=== PATIENT | female | born 1980 | race African-American/Black ===

== ENCOUNTER 2017-05-06 16:09 | Emergency (ER) | payer SELFPAY ==
[~2017-05-06] VITALS: Ht 160 cm; Wt 81.4 kg
[2017-05-06 16:33] VITALS: BP 126/82
[2017-05-06 17:38] LABS: ADD MIUA? NO; BILIRUBIN NEGATIVE; BLOOD NEGATIVE; COLOR YELLOW ((YELLOW)); GLUCOSE (STRIP) NEGATIVE; KETONES NEGATIVE; LEUKOCYTES NEGATIVE; NITRITE NEGATIVE; PROTEIN (STRIP) NEGATIVE; SPECIFIC GRAVITY 1.015 (1.000-1.030); UCUL ADDED? NO; UROBILINOGEN 0.2 MG/DL (0.2-1.0)
[2017-05-06 17:53] LABS: AMPHETAMINE NEGATIVE (500 ng/mL); BARBITURATES NEGATIVE (200 ng/mL); BENZODIAZEPINES NEGATIVE (150 ng/mL); COCAINE NEGATIVE (150 ng/mL); INTERNAL CONTROLS VALID? YES; METHADONE NEGATIVE (200 ng/mL); METHAMPHETAMINE NEGATIVE (500 ng/mL); OPIATES (MORPHINE) NEGATIVE (100 ng/mL); OXYCODONE NEGATIVE (100 ng/mL); PHENCYCLIDINE NEGATIVE (25 ng/mL); PROPOXYPHENE NEGATIVE (300 ng/mL); THC CANNABINOIDS NEGATIVE (50 ng/mL); TRICYCLIC ANTIDEPRESSANTS NEGATIVE (300 ng/mL)
[2017-05-06 17:55] LABS: EOSINOPHIL (%) 1.2 % (0-5); EOSINOPHIL COUNT 0.1 K/uL (0-0.3); HEMATOCRIT 33.6 % (36.0-46.0); IMMATURE GRANULOCYTE (%) 0.8 % (0.0-0.7); IMMATURE GRANULOCYTE COUNT 0.1 K/uL; INSTRUMENT ABS NEUTROPHIL CT 5.4 K/uL; LYMPHOCYTE COUNT 1.5 K/uL (1.0-2.8); MCH 24.5 PG (29.0-34.0); MCHC 32.1 G/DL (30.0-36.0); MCV 76.4 FL (83-99); MEAN PLAT.VOLUME 9.9 uM^3 (9.5-12.4); MONOCYTE (%) 6.2 % (3-12); MONOCYTE COUNT 0.5 K/uL (0-0.8); NEUTROPHIL (%) 72.2 % (45-76); NEUTROPHIL COUNT 5.4 K/uL (1.8-6.4); PLATELET COUNT 346 K/uL (156-360); RBC DIS.WIDTH-CV 14.1 % (11.8-14.6); RBC DIS.WIDTH-SD 39.2 % (39-53); WHITE BLOOD COUNT 7.4 K/uL (4.1-10.2)
[2017-05-06 18:11] LABS: ALKALINE PHOSPHATASE 57 IU/L (3-129); ANION GAP 8 MEQ/L (2-14); CHLORIDE 105 MEQ/L (99-109); GFR ESTIMATE (CALCULATED) > 59 mL/min/; GLUCOSE 103 mg/dL (70-99); POTASSIUM 3.4 MEQ/L (3.7-5.4); SAMPLE HEMOLYSIS CHECK 0; SAMPLE ICTERIC CHECK 0; SAMPLE LIPEMIA CHECK 0; SODIUM 135 MEQ/L (136-147); TOTAL BILIRUBIN 0.2 MG/DL (0.0-1.0); UREA NITROGEN (BUN) 8 mg/dL (9-23)
[2017-05-06 20:36] VITALS: BP 125/80
== END 2017-05-06 20:36 | disposition home or self-care (01) ==
LOC: LDRP-OP 16:09 → EME 16:09 → 2WEST 16:10 → LDRP-OP 16:10 → 2WEST 17:43 → EDSTATUS 18:09 → EME 20:36
PROVIDERS: Advanced Practice Midwife
DX: O98.513 Other viral diseases complicating pregnancy, third trimester (principal); B34.9 Viral infection, unspecified; O09.513 Supervision of elderly primigravida, third trimester; Z3A.28 28 weeks gestation of pregnancy; Z88.6 Allergy status to analgesic agent
CPT/HCPCS: 59025; 71020; 80053; 81003; 85025; 99281; 99283

== ENCOUNTER → 2017-05-16 | Outpatient (CLI) | payer SELFPAY | END | disposition home or self-care (01) | LOC: RAD 12:35 | DX: Z3A.29 29 weeks gestation of pregnancy (principal); D25.9 Leiomyoma of uterus, unspecified | CPT/HCPCS: 76805 ==

== ENCOUNTER 2017-07-13 18:58 | Inpatient (IN) | payer OTHER ==
[~2017-07-13] VITALS: Ht 160 cm; Wt 83.2 kg
[2017-07-13] VITALS (10 sets, daily range): BP systolic 123–176; BP diastolic 84–105
[2017-07-13] MEDS ORDERED: PRENATAL TABLE1 EAC3 PO (19:19)
[2017-07-13] MEDS ORDERED: IRON325 M1 PO (19:19)
[2017-07-13 22:00] LABS: EOSINOPHIL (%) 0.3 % (0-5); HEMATOCRIT 37.1 % (36.0-46.0); IMMATURE GRANULOCYTE (%) 0.4 % (0.0-0.7); LYMPHOCYTE COUNT 1.5 K/uL (1.0-2.8); MCH 25.5 PG (29.0-34.0); MCHC 33.4 G/DL (30.0-36.0); MCV 76.2 FL (83-99); MEAN PLAT.VOLUME 10.7 uM^3 (9.5-12.4); MONOCYTE (%) 6.8 % (3-12); MONOCYTE COUNT 0.5 K/uL (0-0.8); NEUTROPHIL (%) 70.5 % (45-76); PLATELET COUNT 284 K/uL (156-360); RBC DIS.WIDTH-CV 14.1 % (11.8-14.6); RBC DIS.WIDTH-SD 37.9 % (39-53); RED BLOOD COUNT 4.87 M/uL (3.80-5.20); WHITE BLOOD COUNT 7.1 K/uL (4.1-10.2)
[2017-07-13 22:11] LABS: ANION GAP 10 MEQ/L (2-14); CHLORIDE 102 MEQ/L (99-109); POTASSIUM 3.8 MEQ/L (3.7-5.4); SAMPLE HEMOLYSIS CHECK 0; SAMPLE ICTERIC CHECK 0; SAMPLE LIPEMIA CHECK 1; SODIUM 131 MEQ/L (136-147); TOTAL BILIRUBIN 0.4 MG/DL (0.0-1.0)
[2017-07-13 22:16] LABS: ALKALINE PHOSPHATASE 105 IU/L (3-129); GFR ESTIMATE (CALCULATED) > 59 mL/min/; GLUCOSE 78 mg/dL (70-99); LACTATE DEHYDROGENASE 197 IU/L (20-246); UREA NITROGEN (BUN) 11 mg/dL (9-23); URIC ACID 5.1 mg/dL (3.1-9.2)
[2017-07-13 22:27] LABS: UR CREATININE CONCENTRATION 124.3 MG/DL
[2017-07-14] VITALS (11 sets, daily range): BP systolic 109–151; BP diastolic 61–89
[2017-07-14 01:27] LABS: HEMATOCRIT 27.1 % (36.0-46.0); MCHC 32.1 G/DL (30.0-36.0); MCV 77.9 FL (83-99); MEAN PLAT.VOLUME 10.1 uM^3 (9.5-12.4); NRBC (%) 0.2 /100 WBC (0-0); PLATELET COUNT 296 K/uL (156-360); RBC DIS.WIDTH-CV 13.9 % (11.8-14.6); RBC DIS.WIDTH-SD 39.2 % (39-53); RED BLOOD COUNT 3.48 M/uL (3.80-5.20); WHITE BLOOD COUNT 24.3 K/uL (4.1-10.2)
[2017-07-14 03:53] LABS: HEMATOCRIT 22.3 % (36.0-46.0); MCH 25.4 PG (29.0-34.0); MCHC 32.7 G/DL (30.0-36.0); MCV 77.7 FL (83-99); MEAN PLAT.VOLUME 9.6 uM^3 (9.5-12.4); NRBC (%) 0.1 /100 WBC (0-0); PLATELET COUNT 245 K/uL (156-360); RBC DIS.WIDTH-SD 39.5 % (39-53); RED BLOOD COUNT 2.87 M/uL (3.80-5.20); WHITE BLOOD COUNT 22.6 K/uL (4.1-10.2)
[2017-07-14 04:00] LABS: INTER. NORMALIZED RATIO 1.1; PROTHROMBIN TIME 12.1 SEC (10.2-12.9)
[2017-07-14 04:30] LABS: FIBRINOGEN 199 mg/dL (150-450)
[2017-07-14 04:52] LABS: EOSINOPHIL (%) 0 % (0-5); HEMATOLOGY COMMENT 1 SMEAR COMPATIBLE; IMMATURE GRANULOCYTE (%) 1.4 % (0.0-0.7); IMMATURE GRANULOCYTE COUNT 0.3 K/uL; INSTRUMENT ABS NEUTROPHIL CT 19.2 K/uL; LYMPHOCYTE COUNT 1.6 K/uL (1.0-2.8); MONOCYTE (%) 6.3 % (3-12); MONOCYTE COUNT 1.4 K/uL (0-0.8); NEUTROPHIL (%) 85.2 % (45-76); NEUTROPHIL COUNT 19.2 K/uL (1.8-6.4); PLAT.SUFFICIENCY ADEQUATE
[2017-07-14 12:31] LABS: HEMATOCRIT 15.3 % (36.0-46.0); MCHC 32.7 G/DL (30.0-36.0); MCV 76.5 FL (83-99); RBC DIS.WIDTH-CV 13.8 % (11.8-14.6); WHITE BLOOD COUNT 14.5 K/uL (4.1-10.2)
[2017-07-14 13:27] LABS: MEAN PLAT.VOLUME 10.5 uM^3 (9.5-12.4); PLAT.SUFFICIENCY ADEQUATE
[2017-07-14 13:28] LABS: PLATELET COUNT 168 K/uL (156-360)
== END 2017-07-14 15:09 | disposition short-term general hospital (02) | DRG 765 ==
LOC: LDRP-OP 18:58 → 2WEST 18:59
PROVIDERS: Obstetrics & Gynecology
DX: O64.1XX1 Obstructed labor due to breech presentation, fetus 1 (principal); D62 Acute posthemorrhagic anemia; O65.5 Obstructed labor due to abnormality of maternal pelvic organs; O34.13 Maternal care for benign tumor of corpus uteri, third trimester; D25.9 Leiomyoma of uterus, unspecified; Z37.0 Single live birth; Z3A.38 38 weeks gestation of pregnancy; O13.4 Gestational [pregnancy-induced] hypertension without significant proteinuria, complicating childbirth; O99.013 Anemia complicating pregnancy, third trimester; O99.02 Anemia complicating childbirth; N89.8 Other specified noninflammatory disorders of vagina; R00.0 Tachycardia, unspecified; Z53.1 Procedure and treatment not carried out because of patient's decision for reasons of belief and group pressure; D50.9 Iron deficiency anemia, unspecified
CPT/HCPCS: 80053; 82570; 83615; 84156; 84550; 85025; 85027; 85384; 85610; 86850; 86900; 86901; 88305; J0690; J0881; J1756; J2270; J2274; J2765; J3010; J7030; J7050; J7120; P9047